=== PATIENT | female | born 1955 | race Caucasian/White ===

== ENCOUNTER 2018-07-22 06:25 | Observation (INO) ==
[~2018-07-22 06:25] MED LIST: CefOXitin Inj 2 GM in Sodium Chloride 0.9% 100 ML IV ONE; LIDOCAINE W/ SODIUM BICARB 0.5 ML SYR ONE; LIDOCAINE W/ SODIUM BICARB 0.5 ML SYR SUBD PRN; Lactated Ringers 2,000 ML PRIMARY IV ONE; Nasal Sanitizer POPSWAB ampule 3 AMP (Nozin) PREOP DOSE ENOS SCH; Sodium Chloride 0.9% 100 ML IV ONE
[2018-07-22] MEDS: Lactated Ringers 1,000 ML PRIMARY IV SCH ×2 (06:46→22:02)
[2018-07-22] MEDS ORDERED: BUPIVACAINE 0.25% W/ EPI - 10 ML VIAL ONE (06:56)
[2018-07-22] MEDS ORDERED: LIDOCAINE HCL 2 % 10 ML JELLY URO-JECT TOPICAL ONE ×2 (06:56→07:47)
[2018-07-22] MEDS ORDERED: fentaNYL Inj 250 MCG/5 ML VIAL ONE (07:33)
[2018-07-22] MEDS ORDERED: ROCURONIUM 10 MG/1 ML - 5 ML VIAL IVP ONE ×2 (07:34→08:36)
[2018-07-22] MEDS ORDERED: Sodium Chloride 0.9% vial 20 ML ONE (07:48)
[2018-07-22] MEDS ORDERED: ePHEDrine Inj 50 MG/ML AMP ONE (08:04)
[2018-07-22] MEDS ORDERED: PHENYLEPHRINE 10,000 MCG/1 ML VIAL ONE (08:19)
[2018-07-22] MEDS ORDERED: PROPOFOL 10 MG/1 ML (200 MG/20 ML) VIAL IV ONE (08:35)
[2018-07-22] MEDS ORDERED: FUROSEMIDE 10 MG/1 ML - 4 ML ONE (10:46)
[2018-07-22] MEDS ORDERED: SUGAMMADEX SODIUM 200 MG/2 ML VIAL IV ONE (11:29)
[2018-07-22] MEDS ORDERED: ONDANSETRON 4 MG/2 ML VIAL ONE (11:30)
[2018-07-22] MEDS ORDERED: IBUPROFEN 800 MG TABLET PO PRN (11:46)
[2018-07-22] MEDS ORDERED: Ondansetron ODT Tab 8 MG TAB PO PRN (11:46)
--- NOTE | 2018-07-22 11:54 | OB.OP.NOTE ---
Operative Report Surgeon: Dr. 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 Vaginal apex well supported without tension. Indications for the Procedure: Vaginal vault prolapse after hysterectomy with large cystocele. Description of Procedure: See dictated operative report. Plan: Routine post op care with overnight observation and discharge to home tomorrow morning.
[2018-07-22] MEDS ORDERED: KETOROLAC 15 MG/1 ML VIAL IVP SCH (12:00)
[2018-07-22] MEDS ORDERED: Meperidine Inj 50 MG/ML CARPUJECT IVP PRN (12:09)
[2018-07-22] MEDS ORDERED: LIDOCAINE W/ SODIUM BICARB 0.5 ML SYR SUBD PRN (12:09)
[2018-07-22] MEDS ORDERED: fentaNYL Inj 100 MCG/2 ML VIAL IVP PRN (12:09)
[2018-07-22] MEDS ORDERED: MORPHINE SULFATE 2 MG/1 ML IVP PRN (12:09)
--- NOTE | 2018-07-22 12:11 | CRNA.PROGR ---
Anesthesia Time - Procedure/Recovery Time Start Date: 07/22/18 End Date: 07/22/18 Anesthesia : Time In: 07:43 Anesthesia : Time Out: 12:04 Anesthesia : Total Time: 261 - Total Anesthesia Time Total Anesthesia Time (minutes): 261 - Other Weight: 68.674 kg Height: 5 ft 4 in Body Mass Index (BMI): 25.9 Physical Status: P2 Anesthesia Type: General Anesthesia : ET
[2018-07-22] MEDS ORDERED: HYDROmorphone 2 MG/1 ML ONE (12:24)
[2018-07-22] MEDS: HYDROmorphone 2 MG/1 ML IVP PRN ×2 (12:26→12:41)
[2018-07-22] MEDS ORDERED: CALCIUM CARBONATE 500 MG (TUMS) CHEWABLE TABLET PO PRN (14:31)
[2018-07-22] MEDS: HYDROcodone-APAP 5 MG -325 MG TABLET PO PRN ×2 (18:01→23:29)
[2018-07-22] MEDS: KETOROLAC 15 MG/1 ML VIAL IVP SCH ×2 (18:02→23:21)
[2018-07-22] MEDS: DOCUSATE 100 MG CAPSULE PO SCH (21:26)
[2018-07-23] MEDS: HYDROcodone-APAP 5 MG -325 MG TABLET PO PRN ×2 (04:31→08:38)
[2018-07-23] MEDS: KETOROLAC 15 MG/1 ML VIAL IVP SCH (04:32)
[2018-07-23 05:44] VITALS: O2SAT 91
[2018-07-23] MEDS: Lactated Ringers 1,000 ML PRIMARY IV SCH (05:50)
--- NOTE | 2018-07-23 08:24 | PDOC(PROG) ---
Subjective Post Op Day: 1 Pain Management: PO Zuniga Catheter: No Flatus: Yes Diet: Regular Ambulating: Yes Concerns / Additional Information: The patient is feeling well this AM. She has minimal pain. Zuniga was removed an hour ago. Awaiting void. Objective - General General Appearance: POSITIVE: No Acute Distress Assesstment / Plan Assessment / Plan: POD 1, doing well. Discharge to home after void. F/u 2 weeks.
[2018-07-23] MEDS: DOCUSATE 100 MG CAPSULE PO SCH (08:38)
[2018-07-23 08:42] VITALS: BP 84/48; RESP 20; TEMP 97.6
== END 2018-07-23 10:49 | disposition home or self-care (01) ==
LOC: MED/SURG 06:25 → OR 06:25 → OPS 06:34
PROVIDERS: ADMIT Obstetrics & Gynecology; ATTEND Obstetrics & Gynecology